=== PATIENT | female | born 1965 | race Caucasian/White ===

== ENCOUNTER → 2016-07-07 | Day surgery (SDC) | payer OTHER ==
--- NOTE | 2016-07-08 15:49 | PATH ---
Surgical Pathology Report Patient Name: VLAD MIDDLETON [facility]. Rec. #: [id number] /Age/Gender: 1965 (Age: 50) / F Account: [id number] Location: [facility] Taken: 07/07/2016 Received: 07/07/2016 Reported: 07/08/2016 Physicians: Oh Gates M.D. Specimen(s) Received A: RIGHT BREAST SPECIMEN SITE 1 WITH CALCIFICATIONS B: RIGHT BREAST SPECIMEN SITE 1 WITHOUT CALCIFICATIONS C: RIGHT BREAST SPECIMEN SITE 2 WITH CALCIFICATIONS D: RIGHT BREAST SPECIMEN SITE 2 WITHOUT CALCIFICATIONS Clinical History Non-palpable lesion Mammographic findings: suspicious microcalcification Site #1: 10 o'clock position 7.4 cm from nipple Site #2: 4 o'clock position 9 cm from nipple Final Diagnosis A. BREAST, RIGHT, SITE #1, 10:00 POSTERIOR TO NIPPLE, WITH CALCIFICATIONS, STEREOTACTIC BIOPSY: BENIGN BREAST TISSUE SHOWING FAT NECROSIS WITH ASSOCIATED CALCIFICATIONS. FEW CALCIFICATIONS ARE PRESENT IN ASSOCIATION WITH BENIGN GLANDULAR PARENCHYMA. B. BREAST, RIGHT, SITE #1, 10:00 POSTERIOR TO NIPPLE, WITHOUT CALCIFICATIONS, STEREOTACTIC BIOPSY: BENIGN BREAST TISSUE SHOWING FAT NECROSIS, MINUTE INTRADUCTAL PAPILLOMA, FIBROCYSTIC CHANGES AND COLUMNAR CELL CHANGES. C. BREAST, RIGHT, SITE #2, 4:00, WITH CALCIFICATIONS, STEREOTACTIC BIOPSY: BENIGN BREAST TISSUE SHOWING FAT NECROSIS WITH ASSOCIATED CALCIFICATIONS. REMAINING BREAST TISSUE SHOWS FIBROCYSTIC CHANGES. D. BREAST, RIGHT, SITE #2, 4:00, WITHOUT CALCIFICATIONS, STEREOTACTIC BIOPSY: BENIGN BREAST TISSUE SHOWING FAT NECROSIS. Electronically Signed Annette Terrell M.D. Gross Description A. Received in formalin, labeled "right breast with calcifications 10:00 site 1 posterior to nipple," is a 2.7 x 2.0 x 0.3 cm aggregate of multiple dee-yellow, irregular to cylindrical portions of fibroadipose tissue. The formalin is filtered and the specimen is entirely submitted in one cassette. B. Received in formalin, labeled "right breast without calcifications site 1 10:00 posterior to nipple," is a 3.3 x 3.2 x 0.3 cm aggregate of multiple dee-yellow, irregular to cylindrical portions of fibroadipose tissue. The formalin is filtered and the specimen is entirely submitted in 2 cassettes. C. Received in formalin, labeled "right breast with calcifications 4:00 site 2," are 4 dee-yellow, cylindrical portions of fibroadipose tissue ranging from 0.9-2.6 cm. in length and averaging 0.3 cm. in diameter. The specimen is submitted in toto in one cassette. D. Received in formalin, labeled "right breast without calcifications 4:00 site 2," is a 2.5 x 2.3 x 0.3 cm aggregate of multiple dee-yellow, irregular to cylindrical portions of fibroadipose tissue. The formalin is filtered and the specimen is entirely submitted in one cassette. Time to formalin fixation: 5 minutes Total formalin fixation time: Approximately 7 hours. 07/07/201607/07/2016
== END | disposition home or self-care (01) ==
LOC: FMAMMOTONE 08:58
PROVIDERS: ATTEND Nurse Practitioner Family
PROC: 0HBT3ZX Excision of Right Breast, Percutaneous Approach, Diagnostic (ICD-10-PCS; principal; 2016-07-07)
DX: D24.1 Benign neoplasm of right breast (principal); N60.11 Diffuse cystic mastopathy of right breast
CPT/HCPCS: 19081; 19082; 87899; 88305-TC; A4648

== ENCOUNTER 2018-09-11 09:57 | Day surgery (SDC) | payer OTHER ==
[2018-09-10 14:54] VITALS: BMI 31.1
[2018-09-11 13:13] VITALS: BP 106/66; PULSE 63; TEMP 97.8
== END 2018-09-11 13:34 | disposition home or self-care (01) ==
LOC: JASU-ENDO 09:57
PROVIDERS: ATTEND Internal Medicine Gastroenterology
PROC: 0DJD8ZZ Inspection of Lower Intestinal Tract, Via Natural or Artificial Opening Endoscopic (ICD-10-PCS; principal; 2018-09-11 11:00)
DX: Z12.11 Encounter for screening for malignant neoplasm of colon (principal); K57.30 Diverticulosis of large intestine without perforation or abscess without bleeding; K64.8 Other hemorrhoids
CPT/HCPCS: 84703